=== PATIENT | male | born 2005 | race Caucasian/White ===

== ENCOUNTER 2025-03-03 20:20 | Inpatient (IN) | payer OTHER, SELFPAY ==
--- OUTSIDE RECORDS SUMMARY | 2025-03-03 20:28 | XMS_ITS | Clinical Summary ---
Author Organization [facility] [address] [facility] Address [address] [place] [address] Phone Care Team Providers Care Cyber Defense Incident Responder Name Role Phone Madeline Pappas MD Primary Care Provider Allergies Active Allergy Reactions Criticality Noted Date Comments Bee Venom Protein (Honey Bee) 2024 Medications No known medications Active Problems No known active problems Social History Tobacco Use Types Packs/Day Years Used Date Smoking Tobacco: Never Smokeless Tobacco: Never Tobacco Cessation:Counseling Given: Not Answered Alcohol Use Standard Drinks/Week Comments Never 0 (1 standard drink = 0.6 oz pur e alcohol) Sex and Gender Information Value Date Recorded Sex Assigned at Not on file Legal Sex Male 3:39 PM EST Gender Identity Not on file Sexual Orientation Not on file Obstetrics History Last Filed Vital Signs Vital Sign Reading Time Taken Comments Blood Pressure 122/80 11/08/2024 2:48 PM EDT Pulse 90 11/08/2024 2:48 PM EDT Temperature 36.8 C (98.2 F) 11/08/2024 2:48 PM EDT Respiratory Rate 16 11/08/2024 2:48 PM EDT Oxygen Saturation - - Inhaled Oxygen Concentration - - Weight 75.4 kg (166 lb 3.2 oz) 11/08/2024 2:48 P M EDT Height 180 cm (5' 10.87 ) 11/08/2024 2:48 PM EDT Body Mass Index 23.27 11/08/2024 2:48 PM EDT Plan of Treatment Upcoming Encounters Date Type Department Care Team (Late st Contact Info) Description 11/09/2025 10:00 AM EDT Office Visit Adult Medicine - [place] [address] [place] [id number] Kyle Ponce PA [address] [place] [address] Health Maintenance Due Date Last Done Comments Hepatitis A Vaccines (2 of 2 - 2-dose series) 08/24/2017 02/24/2017 HPV Vaccines (1 - Male 3-dos e series) 2018 Meningococcal B Vaccine (1 o f 2 - Standard) 2019 Hepatitis B Vaccines (1 of 3 - 19+ 3-dose series) 2022 HIV Screening 04/01/2024 Hepatitis C Screening 04/01/2024 Social Influencers of Health Screening 04/01/2024 Depression Screening 06/08/2024 DTaP,Tdap,and Td Vaccines (2 - Td or Tdap) 11/24/2024 11/24/2014 COVID-19 Vaccine (1 - 2023-2 5 season) 2025 Influenza Vaccine (#1) 2025 Annual Well Child Visit (3-2 1 years old) 11/08/2025 11/08/2024 Meningococcal ACWY Vaccine Completed 04/26, 11/24/2014 HIB Vaccines Aged Out No longer eligi ble based on patient's age to complete this topic IPV Vaccines Aged Out No longer eligi ble based on patient's age to complete this topic MMR Vaccines Aged Out No longer eligi ble based on patient's age to complete this topic Pneumococcal Vaccine: Pediatrics (0 to 5 Years) and At-Risk Patients (6 to 49 Years) Aged Out No longer eligible b ased on patient's age to complete this topic RSV Immunization Patients Under 20 months Aged Out No longer eligible b ased on patient's age to complete this topic Varicella Vaccines Aged Out No longer eligible based on patient's age to complete this topic Insurance [facility] Care Teams Cyber Defense Incident Responder Relationship Specialty Start Date End Date Madeline Pappas MD [address] [place] [address] [phone] PCP - General Internal Medicine 07/07/24
--- OUTSIDE RECORDS SUMMARY | 2025-03-03 20:28 | XMS_ITS | Clinical Summary ---
Author Organization [facility] Address [address] [place] [id number] Phone Care Team Providers Care Auto Design Detailer Name Role Phone Unavailable Primary Care Provider Unavailabl e Social History Tobacco Use Types Packs/Day Years Used Date Smoking Tobacco: Never Assessed Education Answer Date Recorded Are you interested in more education? Not on angelika e 04/01/2023 Are you concerned about learning? Not on file 04/01/2023 No 04/01/2023 No 04/01/2023 Digital Access Answer Date Recorded No 04/01/2023 No 04/01/2023 Reliable internet access at home? Not on file 04/01/2023 Device with a working camera? Not on file Sex and Gender Information Value Date Recorded Sex Assigned at Not on file Legal Sex Male 6:49 PM EDT Gender Identity Not on file Sexual Orientation Not on file Plan of Treatment Health Maintenance Due Date Last Done Comments Adult Td,Tdap Booster 2003 MMR VACCINES (1 of 1 - Stand abdon series) 2004 COMBINED DTaP,Tdap,Td (1 - Tdap) 2010 DEPRESSION SCREENING 2015 SMOKING Hx and SMOKELESS TOB ACCO SCREENING 2016 HPV VACCINES (1 - Male 3-dos e series) 2018 MENINGOCOCCAL VACCINES (B) ( 1 of 2 - Standard) 2019 ADOLESCENT UNIVERSAL LIPID SCREENING 2020 HEPATITIS C SCREENING 2021 HIV ONE-TIME SCREENING (18-6 5 YEARS) 2021 INFLUENZA VACCINE (#1) 2025 COVID-19 VACCINE (1 - 2023-2 5 season) 2025 HEPATITIS A VACCINES Aged Out No long er eligible based on patient's age to complete this topic HIB VACCINES Aged Out No longer eligi ble based on patient's age to complete this topic MENINGOCOCCAL VACCINES (ACWY) Aged Out No longer eligible based on patient's age to complete this topic PNEUMOCOCCAL VACCINES (0-49 years) Aged Out No longer eligible based on patient's age to complete this topic Medical Devices Not on file Additional Source Comments The information contained in this document represents components of the legal health record. It is not the complete legal health record.[facility]
[2025-03-03 21:00] VITALS: BP 126/76; PULSE 72; RESP 18; TEMP 36.4; O2SAT 99
[2025-03-03 21:48] VITALS: BMI 20.3
[2025-03-03] MEDS: Nicotine Polacrilex Lozenge 4 MG LOZENGE BUCCAL (22:45)
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
[2025-03-04 08:00] VITALS: BP 126/71; PULSE 61; RESP 18; TEMP 36.6; O2SAT 99
[2025-03-04] MEDS: Nicotine Polacrilex Lozenge 4 MG LOZENGE BUCCAL ×6 (08:49→20:43)
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
[2025-03-04 20:00] VITALS: BP 150/77; PULSE 91; RESP 16; TEMP 36.7; O2SAT 98
[2025-03-05 07:47] VITALS: BP 109/71; PULSE 73; RESP 18; TEMP 35.7; O2SAT 98
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
[2025-03-05] MEDS: Nicotine Polacrilex Lozenge 4 MG LOZENGE BUCCAL ×6 (08:30→20:45)
[2025-03-05 20:00] VITALS: BP 151/91; PULSE 92; RESP 18; TEMP 36.4; O2SAT 100
[2025-03-06 08:00] VITALS: BP 120/75; PULSE 92; RESP 16; TEMP 2.1; TEMP 35.8; O2SAT 99
[2025-03-06] MEDS: Nicotine Polacrilex Lozenge 4 MG LOZENGE BUCCAL ×6 (08:18→20:42)
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
[2025-03-06 20:00] VITALS: BP 156/86; PULSE 100; RESP 16; TEMP 36.6; O2SAT 100
[2025-03-07 08:00] VITALS: RESP 18
[2025-03-07] MEDS: Nicotine Polacrilex Lozenge 4 MG LOZENGE BUCCAL (08:08)
== END 2025-03-07 11:09 | disposition home or self-care (01) | DRG 752 ==
PROVIDERS: Admitting Provider Psychiatry & Neurology Psychiatry; Visit Provider Clinical Nurse Specialist Psychiatric/Mental Health, Adult
DX: F60.89 Other specific personality disorders (principal); F63.9 Impulse disorder, unspecified; Z91.51 Personal history of suicidal behavior; Z79.899 Other long term (current) drug therapy

== ENCOUNTER → 2025-03-03 20:20 | Outpatient (BNV) | payer OTHER, SELFPAY | PROVIDERS: Admitting Provider Psychiatry & Neurology Psychiatry; Visit Provider Student in an Organized Health Care Education/Training Program | DX: Z00.8 Encounter for other general examination (principal) | CPT/HCPCS: 99222 ==

== ENCOUNTER → 2025-03-03 20:20 | Outpatient (BNV) | payer OTHER, SELFPAY | PROVIDERS: Admitting Provider Psychiatry & Neurology Psychiatry; Visit Provider Psychiatry & Neurology Psychiatry | DX: F60.89 Other specific personality disorders (principal); F63.9 Impulse disorder, unspecified | CPT/HCPCS: 90792 ==